=== PATIENT | female | born 1995 | race Caucasian/White ===

== ENCOUNTER 2016-09-12 17:56 | Emergency (ER) | payer MEDICAID ==
[~2016-09-12] VITALS: Ht 175.3 cm; Wt 75.0 kg
[2016-09-12 20:36] LABS: APPEARANCE,URINE CLEAR (CLEAR); GLUCOSE, URINE (UA) NEGATIVE (NEGATIVE); KETONES,URINE NEGATIVE (NEGATIVE); LEUKOCYTE ESTERASE ,URINE NEGATIVE (NEGATIVE); OCCULT BLOOD,URINE NEGATIVE (NEGATIVE); PH,URINE 6.5 (5.0-8.0); PROTEIN,URINE NEGATIVE (NEGATIVE)
[2016-09-12 20:49] LABS: ADD UA MICROSCOPIC NO
[2016-09-12 21:27] VITALS: BP 125/88
[2016-09-12] MEDS ORDERED: KETOROLAC TROMETHAMINE 60 MG/2 ML VIAL IM ONE (21:30)
== END 2016-09-12 21:58 | disposition home or self-care (01) ==
LOC: EMS 18:00
DX: M79.672 Pain in left foot (principal); M79.671 Pain in right foot
CPT/HCPCS: 73630; 80307; 81003; 84703; 96372; 99285; J1885

== ENCOUNTER 2016-09-15 17:51 | Emergency (ER) | payer MEDICAID | END 2016-09-15 21:27 | disposition left against medical advice (07) | LOC: EMS 17:52 | DX: R07.9 Chest pain, unspecified (principal); Z53.21 Procedure and treatment not carried out due to patient leaving prior to being seen by health care provider | CPT/HCPCS: 93005 ==